=== PATIENT | male | born 1980 | race Caucasian/White ===

== ENCOUNTER 2019-06-04 14:47 | Emergency (ER) | payer OTHER ==
--- NOTE | 2019-06-04 15:11 | PDOC ---
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 HISTORY OF PRESENT ILLNESS: Healthy 39-year-old man presents complaining of laceration to his left index finger. He is right-handed. The injury occurred just prior to arrival. REVIEW OF SYSTEMS: No fever or chills No other injuries Past History - Past Medical History Allergies/Adverse Reactions: Allergies Allergy/AdvReac Type Severity Reaction Status Date / Time No Known Allergies Allergy Verified 06/04/19 14:55 Home Medications: Ambulatory Orders Ibuprofen [Ibu] 600 mg PO TID PRN #15 tablet 06/04/19 Asthma: No COPD: No Diabetes: No - Psycho Social/Smoking Cessation Hx Smoking History: Never smoked Have you smoked in the past 12 months: No Information on smoking cessation initiated: No Hx Alcohol Use: No Drug/Substance Use Hx: No *Physical Exam - Vital Signs Last Vital Signs Temp Pulse Resp BP Pulse Ox 98.4 F 87 20 127/90 100 06/04/19 14:52 06/04/19 14:52 06/04/19 14:52 06/04/19 14:52 06/04/19 14:52 - Physical Exam 06/04/19 15:09 GENERAL: The patient is awake, alert, and fully oriented, in no acute distress. HEAD: Normal with no signs of trauma. EYES: Pupils equal, round and reactive to light, extraocular movements intact, sclera anicteric, conjunctiva clear. EXTREMITIES: The left index finger has an a avulsion over the dorsal aspect of the distal finger which includes part of the distal nail bed. The avulsion is 1 cm in diameter. There is no exposed bone. There is positive active bleeding when the dressing is removed. NEUROLOGICAL: Normal speech, normal gait. PSYCH: Normal mood, normal affect. SKIN: Warm, Dry, normal turgor, no rashes or lesions noted. Procedures - Laceration/Wound Repair Left Distal Dorsal Finger 2nd digit Wound Length: to 2.5 cm Wound Explored: clean, no foreign body present Wound's Depth, Shape: nail-avulsed Irrigated w/ Saline: Yes Sterile Dressing Applied: Yes (Xeroform, gauze, Lyle bandage.) Medical Decision Making - Medical Decision Making 39-year-old man presents with an a avulsion laceration over the dorsal distal surface of his left index finger. The area was cleansed with saline. Xeroform and gauze with Lyle bandage applied. Pressure held until bleeding controlled. Last tetanus is over 5 years ago so Tdap has been ordered. Motrin given for pain. Plan: Home from work now to rest, dressing change daily, cleared to return to work in 3 days. Wound to be protected at work. Discharge - Discharge Information Problems reviewed: Yes Clinical Impression/Diagnosis: Laceration of left index finger Qualifiers: Encounter type: initial encounter Damage to nail status: with damage Foreign body presence: without foreign body Qualified Code(s): S61.311A - Laceration without foreign body of left index finger with damage to nail, initial encounter Condition: Improved Disposition: HOME - Admission No - Additional Discharge Information Prescriptions: Ibuprofen [Ibu] 600 mg PO TID PRN #15 tablet PRN Reason: Pain - Follow up/Referral - Patient Discharge Instructions Patient Printed Discharge Instructions: DI for Laceration Repair Additional Instructions: Today you were evaluated for a laceration to your left index finger. No sutures were advised. The skin will heal together from the edges over the next few weeks. Keep the dressing in place for 48 hours. After that, you may remove the dressing, shower normally, wash the area with soap and water, gently pat it dry, and then place a new dressing on the wound. Apply a thin layer of bacitracin before placing the dressing. Take ibuprofen 600 mg 3 times a day if needed for pain. Follow-up with your primary care physician, or return to the emergency department as needed for any problems with the wound or signs of infection. - Post Discharge Activity
[2019-06-04] MEDS ORDERED: IBUPROFEN 600 MG TABLET (FP) PO ONE ×2 (15:13→15:16)
[2019-06-04] MEDS ORDERED: DIPHTH,PERTUSS(ACELL),TET 0.5 ML DISP.SYRIN IM ONE ×2 (15:13→15:16)
[2019-06-04 15:19] VITALS: BP 127/90; PULSE 87; TEMP 98.4; BMI 30.9
== END 2019-06-04 15:29 | disposition home or self-care (01) ==
LOC: FER 14:47
PROC: 0HQGXZZ Repair Left Hand Skin, External Approach (ICD-10-PCS; principal; 2019-06-04)
DX: S61.311A Laceration without foreign body of left index finger with damage to nail, initial encounter (principal); W26.0XXA Contact with knife, initial encounter; Y93.G1 Activity, food preparation and clean up; Y92.89 Other specified places as the place of occurrence of the external cause; Y99.0 Civilian activity done for income or pay
CPT/HCPCS: 90715; 99283-25